=== PATIENT | female | born 1950 | race Caucasian/White ===

== ENCOUNTER 2020-07-01 06:18 | Observation (INO) | payer MEDICARE, OTHER ==
[~2020-07-01] VITALS: Ht 157.5 cm; Wt 69.9 kg
--- NOTE | 2020-07-01 06:39 | Emergency Department Note ---
History of Present Illnes History of Present Illness History of Present Illness This is a 70 year old female with sudden onset of R thigh pain anterior since this AM. Denies CP or SOB . 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 Location: Right Leg Pain Radiation: Reports extremity Severity: moderate Onset quality: gradual Duration (how long): hour(s) Timing of current episode: constant Progression: worsening Chronicity: new Context: Denies recent illness, Denies recent surgery, Denies recent immobilization, Denies recent travel, Denies trauma/injury, Denies new medications, Denies hx of DVT/PE, Denies non-compliance w/ medications, Denies other Relieving factors: immobilization, rest Exacerbating factors: movement Associated symptoms: Denies denies other symptoms, Denies confusion, Denies chest pain, Denies cough, Denies diaphoresis, Denies fever/chills, Denies headaches, Denies loss of appetite, Denies malaise, Denies nausea/vomiting, Denies rash, Denies seizure, Denies shortness of breath, Denies syncope, Denies weakness, Denies other Treatments prior to arrival: none Past Medical/Family History Physician Review I have reviewed the patient's past medical and family history. Any updates have been documented here. Past Medical History Recent Fever: No Clinical Suspicion of Infectio: No New/Unexplained Change in Ment: No Past Medical History: Hypertension Other Medical History: RA Other Surgery: spinal sx hysterectomy Social History Smoking Cessation: Current every day smoker Counseling Performed: Yes Alcohol Use: None Any Illegal Drug Use: No Review of Systems Review of Systems Constitutional: Reports no symptoms EENTM: Reports no symptoms Cardiovascular: Reports no symptoms Respiratory: Reports no symptoms Gastrointestinal: Reports no symptoms Genitourinary: Reports no symptoms Musculoskeletal: Reports muscle pain Integumentary: Reports no symptoms Neurological: Reports no symptoms Psychological: Reports no symptoms Endocrine: Reports no symptoms Hematological/Lymphatic: Reports no symptoms Physical Exam Related Data Allergies: Coded Allergies: Penicillins (Verified Allergy, Severe, ANAPHYLAXIS, 07/01/20) codeine (Verified Allergy, Severe, ANAPHYLAXIS, 07/01/20) erythromycin base (Verified Allergy, Severe, ANAPHYLAXIS, 07/01/20) iodine (Verified Allergy, Severe, ANAPHYLAXIS, 07/01/20) morphine (Verified Allergy, Severe, "BREATHING PROBLEMS", 07/01/20) nitrofurantoin (Verified Allergy, Severe, ANAPHYLAXIS, 07/01/20) shellfish derived (Verified Allergy, Severe, ANAPHYLAXIS, 07/01/20) NSAIDS (Non-Steroidal Anti-Inflamma (Verified Allergy, Unknown, "TORE STOMACH UP", 07/01/20) Sulfa (Sulfonamide Antibiotics) (Verified Allergy, Unknown, 07/01/20) acetaminophen (Verified Allergy, Unknown, MIGRAINE, 07/01/20) adhesive (Verified Allergy, Unknown, SPOT ITCHING/BREAKOUTS, 07/01/20) amitriptyline (Verified Allergy, Unknown, DRASTICALLY CHANGED HER PERSONALITY, 07/01/20) carisoprodol (Verified Allergy, Unknown, TREMORS, 07/01/20) cyclobenzaprine (Verified Allergy, Unknown, TREMORS, 07/01/20) diazepam (Verified Allergy, Unknown, 07/01/20) diclofenac (Verified Allergy, Unknown, RASH, 07/01/20) etodolac (Verified Allergy, Unknown, 07/01/20) hydrocodone (Verified Allergy, Unknown, MIGRAINE, 07/01/20) latex (Verified Allergy, Unknown, RASH, 07/01/20) levofloxacin (Verified Allergy, Unknown, TENDONITIS, 07/01/20) nortriptyline (Verified Allergy, Unknown, CHEST PAIN, 07/01/20) tizanidine (Verified Allergy, Unknown, 07/01/20) Uncoded Allergies: ASA BUFF (Allergy, Unknown, 07/01/20) MAG CARB-AL GYLC (Allergy, Unknown, 07/01/20) SUN (Allergy, Unknown, RASH, 07/01/20) VOLTAREN GEL (Allergy, Unknown, RASH, 07/01/20) Vital signs reviewed: Yes Physical Exam CONSTITUTIONAL Constitutional: Present well-developed, Present well-nourished HENT HENT: Present normocephalic, Present atraumatic, Present oropharynx clear/moist, Present nose normal HENT L/R: Present left ext ear normal, Present right ext ear normal EYES Eyes: Reports PERRL, Reports conjunctivae normal NECK Neck: Present ROM normal PULMONARY Pulmonary: Present effort normal, Present breath sounds normal CARDIOVASCULAR Cardiovascular: Present regular rhythm, Present heart sounds normal, Present capillary refill normal, Present normal rate GASTROINTESTINAL Abdominal: Present soft, Present nontender, Present bowel sounds normal GENITOURINARY Genitourinary: Present exam deferred SKIN Skin: Present warm, Present dry MUSCULOSKELETAL Musculoskeletal: Present edema (RLe), Present tenderness (RLE) NEUROLOGICAL Neurological: Present alert, Present oriented x 3, Present no gross motor or sensory deficits PSYCHOLOGICAL Psychological: Present mood/affect normal, Present judgement normal Results Laboratory Lab results reviewed: Yes Laboratory comments CMP : potassium at 2.5 CK 477 CKMB 14.7 Cristiano 277 Imaging Imaging results reviewed: Yes Impressions [place] [address] Patient Name: DIXIE DUNN MR #: [id number] : 1950 Age/Sex: 70/F Req #: [id number] [facility] Physician: ESHA JUAREZ MD Ordered by: PAULO DUNN DO Report #: [id number] Location: [facility] Room/Bed: [place] [address] Procedure: [id number] HOPD/US LOW EXT VEINS LIMITED UNI Exam Date: 07/01/20 Exam Time: 0815 REPORT STATUS: Signed EXAM: Right Lower Extremity Venous Duplex Ultrasound INDICATION: right leg pain COMPARISON: None TECHNIQUE: Kumari scale, color Doppler and spectral waveform analysis of the right lower extremity deep venous system was performed. FINDINGS: Common Femoral: Fully compressible with normal spontaneous waveforms. Proximal Greater Saphenous: Fully compressible. Femoral: Fully compressible with normal spontaneous waveforms. Normal response to augmentation. Proximal Deep Femoral: Normal spontaneous waveforms. Popliteal: Fully compressible with normal spontaneous waveforms. IMPRESSION: No evidence of deep venous thrombosis in the right lower extremity. Signed by: Romaine Umaña MD on 07/01/2020 8:56 AM Dictated By: ROMAINE UMAÑA MD 5 Transcribed By: RIKA on 07/01/20855 COPY TO: PAULO DUNN DO~ [place] [address] Patient Name: DIXIE DUNN MR #: [id number] : 1950 Age/Sex: 70/F Req #: [id number] Adm Physician: ESHA JUAREZ MD Ordered by: PAULO DUNN DO Report #: [id number] Location: [facility] Room/Bed: [place] [address] Procedure: [id number] HOPD/FEMUR 2 VIEW RT - HOPD Exam Date: 07/01/20 Exam Time: 0837 REPORT STATUS: Signed FEMUR 2 VIEW RT - HOPD - Multiple views HISTORY: ^Leg pain COMPARISON: None available. FINDINGS: Bones: No acute displaced fracture. Osseous alignment is within normal limits. Joints: Status post knee arthroplasty without acute findings. Soft tissues: The soft tissues appear unremarkable. IMPRESSION: No acute radiographic abnormality. Signed by: Romaine Umaña MD on 07/01/2020 9:07 AM Dictated By: ROMAINE UMAÑA MD 6 Transcribed By: RIKA on 07/01/20906 COPY TO: PAULO DUNN DO~ Assessment & Plan Medical Decision Making MDM Diff Dx : RA flare up, DVT, muscle sprain strain , fx , rhabdomyolysis Assessment & Plan Final Impression: (1) Rhabdomyolysis (2) Hypertension (3) Hypokalemia Depart Disposition: ADMITTED PAULO DUNN DO Jul 01, 2020 06:39
--- OUTSIDE RECORDS SUMMARY | 2020-07-01 08:11 | XMS REPORT | Continuity of Care Document ---
Author Author [facility] t Organization [facility] [place], [place] Address [address] [place] [address] Phone Unavailable Care Team Providers Care Applications Chemist Name Role Phone Huber BARRIOS, S Jacques PCP Ruddy BOWDEN, Rod Attphys Juvenal FUNES, Yves Attphys Unavailable Olegario BARRIOS, Demarcus Mayo Attphys Marilu BARRIOS, Alena Madrigal Attphys Ton BARRIOS, Melvin Cowan Attphys Alysia BARRIOS, Luis Enrique Baker Attphys [phone] ROHAN MICHEL Admphys Unavailable Payers Payer Name Policy Type Policy Number Effective Date Expiration Date Narcisa grimes [facility] [id number] [id number] 2018 00:00:00 Jay [id number] [id number] 2011 00:00:00 Jay Sarmiento Problems Condition Name Condition Details Condition Category Status Onset Date Resolution Date Last Treatment Date Treating Clinician Comments Source Cellulitis Cellulitis Disease Active 2019-09-25 00:00:00 Jay Sarmiento Septic olecranon bursitis of right elbow Septic olecra non bursitis of right elbow Disease Active 2019-09-25 00:00:00 Overview: Added automatically from request for surgery [id number] Jay Sarmiento Atrial fibrillation with rapid ventricular response At rial fibrillation with rapid ventricular response Disease Active 2018-07-17 00:00:00 Jay Sarmiento Allergies, Adverse Reactions, Alerts Allergy Name Allergy Type Status Severity Reaction(s) Onset Date Inacti ve Date Treating Clinician Comments Source Adhesive Tape-Silicones Propensity to adverse reactions to drug Activ e Rash 2018-06-22 00:00:00 Itching Jay bernstein Amitriptyline-Chlordiazepoxide Propensity to adverse reactions to d rug Active 2018-06-22 00:00:00 Jay Sarmiento Carisoprodol Propensity to adverse reactions to drug Active 2018-06-22 00:00:00 Jay kyle Codeine Propensity to adverse reactions to drug Active GI Intolerance 2018-06-22 00:00:00 Nausea and vomiting Jay Sarmiento Diclofenac Propensity to adverse reactions to drug Active Rash 2018-06-22 00:00:00 Jay kyle Erythromycin Propensity to adverse reactions to drug Active Anaphylaxis 2018-06-22 00:00:00 Jay bernstein Kxymqkes-Dtswnbbzw-Hg-Georgi-Men Propensity to adverse reactions to dr ug Active 2018-06-22 00:00:00 Jay Sarmiento Hydrocodone-Acetaminophen Propensity to adverse reactions to drug Act yamila 2018-06-22 00:00:00 Jay bernstein Iodine Propensity to adverse reactions to drug Active Anaphylaxis 2018-06-22 00:00:00 Jay kyle Latex Propensity to adverse reactions to drug Active Rash 2018-06-22 00:00:00 Jay Sarmiento Levofloxacin Propensity to adverse reactions to drug Active Other (See Comments) 2018-06-22 00:00:00 tendonitis Jay Sarmiento Nitrofurantoin Monohyd/M-Cryst Propensity to adverse reactions to d rug Active Anaphylaxis 2018-06-22 00:00:00 Jay Sarmiento Morphine Propensity to adverse reactions to drug Active 2018-06-22 00:00:00 Jay Sarmiento Nortriptyline Propensity to adverse reactions to drug Active 2018-06-22 00:00:00 Jay kyle Nsaids (Non-Steroidal Anti-Inflammatory Drug) Propensi ty to adverse reactions to drug Active Other (See Comments) 2018-06-22 00:00:00 GI bleeding Jay Sarmiento Other Propensity to adverse reactions Active 00:00:00 Sun- rash Jay Sarmiento Penicillins Propensity to adverse reactions to drug Active Anaphylaxis 2018-06-22 00:00:00 Jay bernstein Shellfish Derived Propensity to adverse reactions to drug Active Anaphylaxis 2018-06-22 00:00:00 Thompson Aditi odchago Sulfa (Sulfonamide Antibiotics) Propensity to adverse reactions to drug Active 2018-06-22 00:00:00 [place] Tizanidine Propensity to adverse reactions to drug Active 2018-06-22 00:00:00 Jay Majoris t Diazepam Propensity to adverse reactions to drug Active 2018-06-22 00:00:00 Jay Sarmiento Social History Social Habit Start Date Stop Date Quantity Comments Source History of tobacco use Cigarette Smoker Jay Sarmiento History SDOH Alcohol Std Drinks Jay Sarmiento History SDOH Alcohol Binge Jay Sarmiento Sex Assigned At [place] Sarmiento Cigarettes smoked current (pack per day) - Reported 00:00:00 2019-09-29 00:00:00 Jay Sarmiento Tobacco use and exposure 2019-09-29 00:00:00 2019-09-29 00:00:00 Abdiel r used Jay Sarmiento Alcohol intake 2019-09-29 00:00:00 2019-09-29 00:00:00 Jay Sarmiento History SDOH Alcohol Frequency 2018-07-17 00:00:00 2018-07-17 00:00:0 0 1 Jay Sarmiento Smoking Status Start Date Stop Date Source Current every day smoker 2019-09-29 00:00:00 [place] Sarmiento Medications Ordered Medication Name Filled Medication Name Start Date Stop Da te Current Medication? Ordering Clinician Indication Dosage Frequency Signature (SIG) Comments Components Source leflunomide (ARAVA) 20 MG tablet 2019-10-01 12:56:09 Yes 20mg QD Take 20 mg by mouth daily. Jay Sarmiento furosemide (LASIX) 20 mg tablet 2019-10-01 12:56:09 Yes 40mg Q.5D Take 40 mg by mouth 2 (two) times a day. [place] Sarmiento pantoprazole (PROTONIX) 40 MG EC tablet 2019-10-01 12:56:09 Yes 40mg QD Take 40 mg by mouth daily. Jay bernstein potassium chloride (K-DUR) 20 MEQ CR tablet 2019-10-01 12:56:09 Yes 20meq Q.5D Take 20 mEq by mouth 2 (two) times a day. Jay Sarmiento predniSONE (DELTASONE) 5 mg tablet 2019-10-01 12:56:09 Yes 5mg QD Take 5 mg by mouth daily. Jay Sarmiento oxyCODone-acetaminophen (PERCOCET) 10-325 mg per tablet 2019-10-01 12:56:09 Yes 1{tbl} Q.2D Take 1 tablet b y mouth 5 (five) times a day. Takes at 0800,1200,1600,2000,0000 Jay singleton clonIDINE (CATAPRES) 0.1 MG tablet 2019-10-01 12:56:09 Y es .1mg Q.[id number] Take 0.1 mg by mouth 3 (three) times a day. Jay Sarmiento pregabalin (LYRICA) 200 MG capsule 2019-10-01 12:56:09 Y es 200mg Q.[id number] Take 200 mg by mouth 3 (three) times a day. Jay Sarmiento ketoconazole (NIZORAL) 2 % shampoo 2019-10-01 12:56:09 Yes QD Apply topically daily. Jay Sarmiento cyclobenzaprine (FLEXERIL) 10 mg tablet 2019-10-01 12:56:09 Yes 10mg Q.8475472991634044360O Take 10 mg by mouth 3 (three) times a da y as needed for muscle spasms (pt states she takes 3x/day everyday). Jay Sarmiento amLODIPine (NORVASC) 2.5 mg tablet 2019-10-01 12:56:09 Yes 2.5mg QD Take 2.5 mg by mouth daily. Jay Sarmiento bisoprolol (ZEBETA) 5 MG tablet 2019-10-01 12:56:09 Yes 5mg Q.5D Take 5 mg by mouth 2 (two) times a day. Jay Sarmiento apixaban (ELIQUIS) 2.5 mg tablet 2019-10-01 12:56:09 Yes 2.5mg Q.5D Take 2.5 mg by mouth 2 (two) times a day. [place] Sarmiento mupirocin (BACTROBAN) 2 % ointment 2019-10-01 12:56:09 Y es 1{application} Q.5D Apply 1 application topically 2 (two) times a day. Jay Sarmiento ondansetron ODT (ZOFRAN-ODT) 4 MG disintegrating tablet 2019-10-01 12:56:09 Yes 4mg Q8H Take 4 mg by mo uth every 8 (eight) hours as needed for nausea or vomiting. Jay Sarmiento clindamycin (CLEOCIN) 300 MG capsule 2019-09-30 00:00: 00 2019-10-10 23:59:00 No 600mg Q.[id number] Take 2 capsules (600 mg total) by mouth 3 (three) times a day for 10 days. Jay Sarmiento ondansetron (ZOFRAN) 4 MG tablet 2019-09-25 13:59:32 2019-09 00:00:00 No 4mg Q8H Take 4 mg by mouth e very 8 (eight) hours as needed for nausea or vomiting. Jay Sarmiento Vital Signs Vital Name Observation Time Observation Value Comments Source Systolic blood pressure 2019-10-01 10:50:12 155 mm[Hg] Jay Sarmiento Diastolic blood pressure 2019-10-01 10:50:12 74 mm[Hg] Jay Sarmiento Heart rate 2019-10-01 10:50:12 60 /min Jay Sarmiento Body temperature 2019-10-01 10:50:12 36.72 Mell Aruna Sarmiento Respiratory rate 2019-10-01 10:50:12 16 /min Aruna Sarmiento Oxygen saturation in Arterial blood by Pulse oximetry 10-01 10:50:12 98 /min Jay Sarmiento Body height 2019-09-25 11:41:00 157.5 cm Jay Sarmiento Body weight 2019-09-25 11:41:00 68.04 kg Jay Sarmiento BMI 2019-09-25 11:41:00 27.44 kg/m2 Jay Sarmiento Procedures Procedure Date / Time Performed Performing Clinician Sour e BASIC METABOLIC PANEL 2019-09-30 04:42:00 Gael Melvin HC COMPLETE BLD COUNT W/AUTO DIFF 2019-09-30 04:42:00 Rohan Michel ESTIMATED GFR 2019-09-30 04:42:00 Gael Melvin ANAEROBIC CULTURE 2019-09-29 10:34:00 Gael Melvin GRAM STAIN 2019-09-29 10:34:00 Gael Melvin JOINT FLUID CULTURE 2019-09-29 10:34:00 Gael Melvin AFB STAIN 2019-09-29 10:34:00 Gael Melvin AL AN ELECTIVE SUPRAGLOTTIC AIRWAY 2019-09-29 10:33:48 Todd Zoey Galarzabroderick Thompson [place] EXCISION, OF OLECRANON BURSA 2019-09-29 10:12:00 Gael Melvin FUNGUS CULTURE 2019-09-29 09:34:00 Gael Melvin [place] AFB CULTURE 2019-09-29 09:34:00 Gael Melvin [place] ECG 12-LEAD 2019-09-29 07:29:16 Rohan Michel BUN LEVEL 2019-09-28 05:28:00 ConRosalind chang Meth odist CREATININE LEVEL 2019-09-28 05:28:00 Rosalind Lazcano Met hodist ESTIMATED GFR 2019-09-28 05:28:00 Rosalind Lazcano Meth odist POTASSIUM LEVEL 2019-09-27 14:44:00 MichelRohan vegas VANCOMYCIN LEVEL, TROUGH 2019-09-27 11:15:00 Rosalind Lazcano BUN LEVEL 2019-09-27 04:26:00 Rosalind Lazcano Meth odist CREATININE LEVEL 2019-09-27 04:26:00 Rosalind Lazcano Met hodist ESTIMATED GFR 2019-09-27 04:26:00 Rosalind Lazcano Meth odist POTASSIUM LEVEL 2019-09-26 20:56:[address] UPPER EXTREMITY WO RIGHT 2019-09-26 20:20:00 Liz Daigle BASIC METABOLIC PANEL 2019-09-26 05:55:00 Rohan Michel HC COMPLETE BLD COUNT W/AUTO DIFF 2019-09-26 05:55:00 Rohan Michel ESTIMATED GFR 2019-09-26 05:55:00 Rosalind Lazcano odchago XR ELBOW 3+ VW RIGHT 2019-09-25 12:50:00 Rosalind Lazcano BLOOD CULTURE, AEROBIC & ANAEROBIC 2019-09-25 12:14:00 Rosalind Lazcano BLOOD CULTURE, AEROBIC & ANAEROBIC 2019-09-25 11:55:00 Rosalind Lazcano HC COMPLETE BLD COUNT W/AUTO DIFF 2019-09-25 11:55:00 Marina Lazcano COMPREHENSIVE METABOLIC PANEL 2019-09-25 11:55:00 Rosalind Lazcano ESTIMATED GFR 2019-09-25 11:55:00 Rosalind Lazcano odist Plan of Care Planned Activity Planned Date Details Comments Source Future Scheduled Test 2020-03-06 00:00:00 INFLUENZA VACCINE [code = INFLUENZA VACCINE] Jay Sarmiento Future Scheduled Test 2017 00:00:00 65+ PNEUMOCOCCAL V ACCINE (1 of 1 - PPSV23) [code = 65+ PNEUMOCOCCAL VACCINE (1 of 1 - PPSV23)] Jay Sarmiento Future Scheduled Test 2002 00:00:00 BREAST CANCER SCRE ENING [code = BREAST CANCER SCREENING] Jay Sarmiento Future Scheduled Test 2002 00:00:00 COLONOSCOPY SCREEN ING [code = COLONOSCOPY SCREENING] Jay Sarmiento Future Scheduled Test 2002 00:00:00 SHINGLES VACCINES (#1) [code = SHINGLES VACCINES (#1)] Jay Sarmiento Encounters Start Date/Time End Date/Time En[facility] Source 2020-02-27 19:22:45 2020-02-27 22:13:00 Emergency [facility] ([facility]) [id number] 2019-09-25 00:00:00 2019-10-01 00:00:00 Inpatient MICHEL, IMRA N [facility] [id number] Jay Sarmiento Results Test Description Test Time Test Comments Results Result Comments Source AFB culture 2019-11-11 00:13:32 Test Item AFB culture isolate (test code = 543-9) No growth after 6 we eks of incubation. Specimen InformationSpecimen Source: Specimen Site: Elbow: Right Olecranon Bural fluid Jay Ramsayngus [id number] 00:15:13* Test Item Value Reference Range Interpretation Comments Fungus culture isolate (test code = 1441) No growth af ter 4 weeks of incubation. Specimen Information Specimen Source: Specimen Site: Elbow: Right Olecranon Bural fluid [place] MethodistAnaerobic [id number] 08:33:36* Test Item Value Reference Range Interpretation Comments Anaerobic culture isolate (test code = 552) No anaerobic organis ms isolated. Specimen InformationSpecimen Source: [facility] Site: Elbow: Right Olecranon Bural fluid [place] MethodistAFB [id number] 19:09:33* Test Item Value Reference Range Interpretation Comments AFB stain (test code = 676-7) No acid fast bacilli (AFB) seen. Specimen InformationSpecimen Source: Specimen Site: Elbow: Right Olecranon Bural fluid [place] MoriahistFungus [id number] 19:09:33* Test Item Value Reference Range Interpretation Comments Fungus smear (test code = 1443) No fungi observed. Specimen InformationSpecimen Source: Specimen Site: Elbow: Right Olecranon Bural fluid [place] MethodistGram [id number] 19:09:33Gram stain isolateModerate WBC'sNo organisms seen Comment: Specimen InformationSpecimen Source: Specimen Site: Elbow: Right Olecranon Bural fluid [facility] Yazdanism Blood culture, aerobic & [id number] 19:03:03* Test Item Value Reference Range Interpretation Comments Blood culture isolate (test code = 600-7) No growth after 5 days of incubation. Specimen InformationSpecimen Source: BloodSpecimen Site: Antecubital, left [facility] metabolic [id number] 06:05:42* Test Item Value Reference Range Interpretation Comments Sodium (test code = 2951-2) 142 135- 148 mEq/L Potassium (test code = 2823-3) 3.3 3.5- 5.0 mEq/L L Chloride (test code = 2075-0) 107 98- 112 mEq/L CO2 (test code = 2028-9) 23 24- 31 mEq/L L Anion gap (test code = 71188-9) 12@ANIO 7- 15 mEq/L BUN (test code = 3094-0) 7 mg/dL 8-23 L Creatinine (test code = 2160-0) 0.60 mg/dL 0.5-0.9 Glucose (test code = 2345-7) 125 mg/dL 65-99 H Calcium (test code = 38698-2) 9.2 mg/dL 8.8-10.2 Lab Interpretation (test code = 73018-7) Abnormal Thompson MethodistEstimated [id number] 06:05:42* Test Item Value Reference Range Interpretation Comments Estimated GFR (test code = 5488) >=90 mL/min/1.73 m2 Catergory Units InterpretationG1 >=90 Normal or highG2 60-89 Mildly bvukhyfqhS6o 45-59 Mildly to moderately yzlurpjryV9w 30-44 Moderately to severely decreasedG4 15-29 Severely decreasedG5 <15 Kidney failureThe eGFR was calculated using the Chronic Kidney Disease Epidemiology Collaboration (CKD-EPI) equation. Interpretation is based on recommendations of the National Kidney Foundation-Kidney Disease Outcomes Quality Initiative (NKF-KDOQI) published in 2014. [place] MethodistCBC with platelet and lpcqbhvxvnnb6587-95-44 05:51:32* Test Item Value Reference Range Interpretation Comments WBC (test code = 81368-8) 8.26 4.50- 11.00 k/uL RBC (test code = 87423-9) 3.53 m/uL 4.2-5.5 L HGB (test code = 718-7) 10.7 g/dL 12-16 L HCT (test code = 4544-3) 33.2 % 37-47 L MCV (test code = 787-2) 94.1 fL 82-100 MCH (test code = 785-6) 30.3 pg 27-34 MCHC (test code = 786-4) 32.2 g/dL 31-37 RDW - SD (test code = 41815-4) 45.3 fL 37-55 MPV (test code = 50398-7) 12.4 fL 8.8-13.2 Platelet count (test code = 44219-8) 152 150- 400 k/uL Nucleated RBC (test code = 23289-5) 0.00 /100 WBC Neutrophils (test code = 33084-5) 72.7 % 39-69 H Lymphocytes (test code = 10897-4) 17.1 % 25-45 L Monocytes (test code = 23809-8) 9.2 % 0-10 Eosinophils (test code = 10681-7) 0.2 % 0-5 Basophils (test code = 69785-1) 0.4 % 0-1 Lab Interpretation (test code = 06376-2) Abnormal Thompson MethodistECG 12 [id number] 11:52:50* Test Item Value Reference Range Interpretation Comments Ventricular rate (test code = 253) 74 Atrial rate (test code = 255) 74 AL interval (test code = 266) 136 QRSD interval (test code = 260) 74 QT interval (test code = 264) 386 QTC interval (test code = 265) 428 P axis 1 (test code = 267) 82 QRS axis 1 (test code = 268) 48 T wave axis (test code = 270) 69 EKG impression (test code = 273) Normal sinus rhythm-C annot rule out Anterior infarct , age undetermined-Abnormal ECG-No previous ECGs available- Jay [id number] 10:33:48MoZoey quinonez 09/29/2019 10:34 AMAirwayDate/Time: 09/29/2019 10:20 AMPerformed by: Zoey Brooks StraubAuthorized by: Samuel Hatfield MD Location: ORUrgency: ElectiveDifficult Airway: No Anesthesiologist: Samuel Hatfield, NAJMAesident/AGRICULTURE SCIENCE TEACHER/AA: Zoey Brooks StraubPerformed by: resid ent/AGRICULTURE SCIENCE TEACHER/AAPreoxygenated with 100% O2: Yes C-spine Precautions Maintained Throu ghout: Yes Mask Ventilation: Easy maskFinal Airway Type: Supraglottic airwayF inal LMA: UniqueLMA Size: 4Number of Attempts at Approach: 1Houstejal Sarmiento Creatinine [id number] 06:03:56* Test Item Value Reference Range Interpretation Comments Creatinine (test code = 2160-0) 0.80 mg/dL 0.5-0.9 Jay MethodistBUN [id number] 06:03:56* Test Item Value Reference Range Interpretation Comments BUN (test code = 3094-0) 11 mg/dL 8-23 Jay SarmientoPotassium [id number] 15:26:31* Test Item Value Reference Range Interpretation Comments Potassium (test code = 2823-3) 3.9 3.5- 5.0 mEq/L Jay SarmientoVancomycin level, [id number] 11:56:46* Test Item Value Reference Range Interpretation Comments Vancomycin, trough (test code = 91140-8) 10.6 ug/mL 10-20 Therapeutic Ranges: Peak 30.0 - 40.0 ug/mL Trough 10.0 - 20.0 ug/mL Jay aSrmientoCT Upper Extremity Wo [id number] 20:41:06Hm Interface, Radiology Results Incoming - 09/26/2019 8:44 PM CSTEXAMINATION: CT UPPER EXTREMITY WO RIGHTINDICATION: Elbow pain.COMPARISON: Elbow radiographs dated 09/25/2019TECHNIQUE: Helical axial CT images of the elbow was acquired without intravenous contrast. Sagittal coronal planar reformats were reviewed. Iterative reconstruction and/or automated exposure control was used for dose reduction technique.IMPRESSION:1.Thickening of the skin as well as edema of the subcuta neous fat overlying the olecranon process consistent with cellulitis. There is e xtensive confluent subcutaneous edema at the site and in the absence of contrast an underlying abscess or olecranon bursitis is difficult to exclude. Recommend a contrast-enhanced examination or MRI.2.No evidence of osteomyelitis. No elbow joint effusion to suggest septic arthritis.3.Subcutaneous edema involving the im aged portion of the distal arm and proximal forearm without evidence of a discre te intramuscular or subcutaneous fluid collection consistent with cellulitis. [place] Moriahpresbyterian kaseman hospitalXR Elbow 3+ Vw [id number] 13:15:45Hm Interface, Radiology Results Incoming - 09/25/2019 1:18 PM CSTProcedure:XR ELBOW 3 VW RIGHTREFERRING PHYSICIAN: ROSALIND CONONIEHISTORY: rule out foreign avelino dyCOMPARISON:NoneFINDINGS:No evidence of fracture or dislocation is seen. The yovani int spaces are maintained. No osteolytic or osteoblastic lesion is identify.Subc utaneous edema along the medial posterior aspect of the elbow is noted. Regional soft tissue is otherwise unremarkable. No radiopaque foreign body is seen.XR EL BOW 3 VW RIGHT acquired.IMPRESSION:No radiographic evidence of radiopaque fore ign-body, acute fracture or dislocation of the right elbow.[id number] Jay MethodistComprehensive metabolic [id number] 12:53:24* Test Item Value Reference Range Interpretation Comments Sodium (test code = 2951-2) 141 135- 148 mEq/L Potassium (test code = 2823-3) 3.1 3.5- 5.0 mEq/L L Chloride (test code = 2075-0) 99 98- 112 mEq/L CO2 (test code = 2027-9) 28 24- 31 mEq/L Anion gap (test code = 80889-7) 14@ANIO 7- 15 mEq/L BUN (test code = 3094-0) 12 mg/dL 8-23 Creatinine (test code = 2160-0) 0.80 mg/dL 0.5-0.9 Glucose (test code = 2345-7) 110 mg/dL 65-99 H Calcium (test code = 57975-4) 10.2 mg/dL 8.8-10.2 Protein (test code = 2885-2) 7.4 g/dL 6.3-8.3 Zjmggtk6933.6-7.0 g/dL1 zyvq2238.4-7.6 g/dL7 months-7balc526.1-7.3 g/dL1-2 nmypk480.6-7.5 g/dL>3 ynzhn032.0-8.0 g/bV70-7806991.3-8.3 g/dL Albumin (test code = 1751-7) 4.0 g/dL 3.5-5 A/G ratio (test code = 1759-0) 1.2 0.7-3.8 Alkaline phosphatase (test code = 6768-6) 107 U/L 35-104 H AST (test code = 1920-8) 16 U/L 10-35 ALT (test code = 1742-6) 12 U/L 5-50 Total bilirubin (test code = 1974-) 0.6 mg/dL 0-1.2 Lab Interpretation (test code = 05028-5) Abnormal Jay Yazdanism
--- OUTSIDE RECORDS SUMMARY | 2020-07-01 08:11 | XMS REPORT | Clinical Summary ---
Author Author [facility] Organization [facility] Address Unknown Phone Unavailable Care Team Providers Care Business Performance Analyst Name Role Phone Jacques Ngo MD PCP Allergies Comments Active Allergy Reactions Severity Noted Date Itching Adhesive Tape-Silicones Rash Low 2017 Amitriptyline-Chlordiazep 06/22/2018 oxide Carisoprodol 06/22/2018 Nausea and vomiting Codeine GI 06/22/2018 Intolerance Diclofenac Rash Low 06/22/2018 Erythromycin Anaphylaxis High 06/22/2018 Cagsrchg-Wdlknkxyo-Ja-Georgi 06/22/2018 -Men Hydrocodone-Acetaminophen 06/22/2018 Iodine Anaphylaxis High 06/22/2018 Latex Rash Low 06/22/2018 tendonitis Levofloxacin Other (See 06/22/2018 Comments) Nitrofurantoin Anaphylaxis High 06/22/2018 Monohyd/M-Cryst Morphine 06/22/2018 Nortriptyline 06/22/2018 GI bleeding Nsaids (Non-Steroidal Other (See 06/22/2018 Anti-Inflammatory Drug) Comments) Sun-rash Other 06/22/2018 Penicillins Anaphylaxis High 06/22/2018 Shellfish Derived Anaphylaxis High 06/22/2018 Other Sulfa (Sulfonamide 06/22/2018 Antibiotics) Tizanidine 06/22/2018 Diazepam 06/22/2018 Medications End Date Status Medication Sig Dispensed Refills Start Date Active leflunomide (ARAVA) 20 MG Take 20 mg by 0 tablet mouth daily. Active furosemide (LASIX) 20 mg Take 40 mg by 0 tablet mouth 2 (two) times a day. Active pantoprazole (PROTONIX) Take 40 mg by 0 40 MG EC tablet mouth daily. Active potassium chloride Take 20 mEq 0 (K-DUR) 20 MEQ CR tablet by mouth 2 (two) times a day. Active predniSONE (DELTASONE) 5 Take 5 mg by 0 mg tablet mouth daily. Active oxyCODone-acetaminophen Take 1 tablet 0 (PERCOCET) 10-325 mg per by mouth 5 tablet (five) times a day. Takes at 0800,1200,160 0,2000,0000 Active clonIDINE (CATAPRES) 0.1 Take 0.1 mg 0 MG tablet by mouth 3 (three) times a day. Active pregabalin (LYRICA) 200 Take 200 mg 0 MG capsule by mouth 3 (three) times a day. Active ketoconazole (NIZORAL) 2 Apply 0 % shampoo topically daily. Active cyclobenzaprine Take 10 mg by 0 (FLEXERIL) 10 mg tablet mouth 3 (three) times a day as needed for muscle spasms (pt states she takes 3x/day everyday). Active amLODIPine (NORVASC) 2.5 Take 2.5 mg 0 mg tablet by mouth daily. Active bisoprolol (ZEBETA) 5 MG Take 5 mg by 0 tablet mouth 2 (two) times a day. Active apixaban (ELIQUIS) 2.5 mg Take 2.5 mg 0 tablet by mouth 2 (two) times a day. Active mupirocin (BACTROBAN) 2 % Apply 1 0 ointment application topically 2 (two) times a day. Active ondansetron ODT Take 4 mg by 0 (ZOFRAN-ODT) 4 MG mouth every 8 disintegrating tablet (eight) hours as needed for nausea or vomiting. 09/25/2019 Discontinued ondansetron (ZOFRAN) 4 MG Take 4 mg by 0 tablet mouth every 8 (eight) hours as needed for nausea or vomiting. 10/10/2019 clindamycin (CLEOCIN) 300 Take 2 60 capsule 0 MG capsule capsules (600 0 mg total) by mouth 3 (three) times a day for 10 days. Active Problems Problem Noted Date Cellulitis 09/25/2019 Septic olecranon bursitis of right elbow 09/25/2019 Overview: Added automatically from request for steffanie randall [id number] Atrial fibrillation with rapid ventricular response 07/17/2018 Encounters Care Team Description Date Type Specialty Yves Sanford MA 10/21/2019 Telephone Orthopedic Surgery 10/21/2019 Gael Hanks Jr., MD 10/02/2019 Telephone Orthopedic Surgery Samuel Hatfield MD 09/29/2019 Anesthesia General Surgery Event Gael Melvin Jr., MD EXCISION, OF OLECRANON BURSA 09/29/2019 Surgery General Surgery Rohan Michel MD Islam, Nadim Bin, MD Septic olecranon bursitis of right elbow (Primary Dx); Cellulitis, unspecified cellulitis site 09/25/2019 [facility] dicine - Encounter 10/01/2019 after 07/01/2019 Immunizations Name Administration Dates Next Due Tdap 03/09/2019 (Deferred: - lemos d one 2 years ago) Surgical History Surgery Date Site/Laterality Comments KNEE ARTHROPLASTY Bilateral HYSTERECTOMY JOINT REPLACEMENT Bilateral knee BACK SURGERY Lumbar,cervical EXCISION, OF OLECRANON 09/29/2019 Elbow/Right Procedu re: EXCISION, OF OLECRANON BURSA; Surgeon: Gael Reid Jr., MD; Location: [facility]; Service: Orthopedics; Laterality: Righ t; Medical History Medical History Date Comments Atrial fibrillation (HCC) Arthritis Hypertension Coronary artery disease Osteoarthritis DJD (degenerative joint disease) Neuropathy Fibromyalgia Social History Date Tobacco Use Types Packs/Day Years Used Current Every Day Smoker Cigarettes 1 Smokeless Tobacco: Never Used Drinks/Week oz/Week Comments Alcohol Use Defer Alcohol Habits Answer Date Recorded How often do you have a drink containing alcohol? Never 07/17/2018 How many drinks containing alcohol do you have on No t asked a typical day when you are drinking? How often do you have six or more drinks on one Not asked occasion? Sex Assigned at Date Recorded Not on file Last Filed Vital Signs Reading Time Taken Comments Vital Sign 155/74 10/01/2019 10:50 AM CIGAR BINDER Blood Pressure 60 10/01/2019 10:50 AM [facility]IGAR BINDER Pulse 36.7 C (98.1 F) 10/01/2019 10:50 AM CIGAR B[facility]ER Temperature 16 10/01/2019 10:50 AM C[facility]AR BINDER Respiratory Rate 98% 10/01/2019 10:50 AM CIGAR BINDER Oxygen Saturation - - Inhaled Oxygen Concentration 68 kg (150 lb) 09/25/2019 11:41 AM CIGAR BINDER Weight 157.5 cm (5' 2") 09/25/2019 11:41 AM CIGAR BINDER Height 27.44 09/25/2019 11:41 AM CIGAR B[facility]ER Body Mass Index Plan of Treatment Health Maintenance Due Date Last Done Comments BREAST CANCER SCREENING 2002 COLONOSCOPY SCREENING 2002 SHINGLES VACCINES (#1) 2002 65+ PNEUMOCOCCAL VACCINE 2017 (1 of 1 - PPSV23) INFLUENZA VACCINE 03/06/2020 Procedures Comments Procedure Name Priority Date/Time Associated Diag nosis ESTIMATED GFR Routine 09/30/2019 4:42 AM CIGAR BINDER HC COMPLETE BLD COUNT Routine 09/30/2019 W/AUTO DIFF 4:42 AM [facility]IGAR B[facility]ER BASIC METABOLIC PANEL Routine 09/30/2019 4:42 AM CIGAR B[facility]ER AFB STAIN Timed 09/29/2019 10:34 AM CIGAR BINDER JOINT FLUID CULTURE Timed 09/29/2019 10:34 AM C[facility]AR [facility]ER GRAM STAIN Timed 09/29/2019 10:34 AM [facility]AR [facility]ER FUNGUS SMEAR Timed 09/29/2019 10:34 AM [facility]AR [facility]ER ANAEROBIC CULTURE Timed 09/29/2019 Septic olecr anon bursitis 10:34 AM CIGAR BINDER of right elbow MT AN ELECTIVE Routine 09/29/2019 SUPRAGLOTTIC AIRWAY 10:33 AM CIGAR B[facility]ER EXCISION, OF OLECRANON 09/29/2019 Septic olecran on bursitis BURSA 10:12 AM CIGAR BINDER of right elbow AFB CULTURE Timed 09/29/2019 Septic olecrano n bursitis 9:34 AM CIGAR BINDER of right elbow FUNGUS CULTURE Timed 09/29/2019 Septic olecrano n bursitis 9:34 AM CIGAR B[facility]ER of right elbow ECG 12-LEAD Routine 09/29/2019 7:29 AM C[facility]AR [facility]ER ESTIMATED GFR Routine 09/28/2019 5:28 AM CIGAR BINDER CREATININE LEVEL Routine 09/28/2019 5:28 AM [facility]AR [facility]ER BUN LEVEL Routine 09/28/2019 5:28 AM [facility]AR [facility]ER POTASSIUM LEVEL Routine 09/27/2019 2:44 PM [facility]ER VANCOMYCIN LEVEL, TROUGH Timed 09/27/2019 11:15 AM CIGAR B[facility]ER ESTIMATED GFR Routine 09/27/2019 4:26 AM CIGAR BINDER CREATININE LEVEL Routine 09/27/2019 4:26 AM C[facility]AR [facility]ER BUN LEVEL Routine 09/27/2019 4:26 AM [facility]ER POTASSIUM LEVEL Routine 09/26/2019 8:[address] UPPER EXTREMITY WO Routine 09/26/2019 RIGHT 8:20 PM [facility]ER ESTIMATED GFR Routine 09/26/2019 5:55 AM CIGAR BINDER HC COMPLETE BLD COUNT Routine 09/26/2019 W/AUTO DIFF 5:55 AM CIGAR B[facility]ER BASIC METABOLIC PANEL Routine 09/26/2019 5:55 AM CIGAR BINDER XR ELBOW 3+ VW RIGHT STAT 09/25/2019 12:50 PM [facility]AR [facility]ER BLOOD CULTURE, AEROBIC & Routine 09/25/2019 ANAEROBIC 12:14 PM [facility]ER ESTIMATED GFR STAT 09/25/2019 11:55 AM CIGAR BINDER COMPREHENSIVE METABOLIC STAT 09/25/2019 PANEL 11:55 AM CIGAR BINDER HC COMPLETE BLD COUNT STAT 09/25/2019 W/AUTO DIFF 11:55 AM CIGAR [facility]ER BLOOD CULTURE, AEROBIC & Routine 09/25/2019 ANAEROBIC 11:55 AM CIGAR BINDER after 07/01/2019 Results * Estimated GFR (09/30/2019 4:42 AM CIGAR BINDER) Only the most recent of 5 results within the time period is included. Estimated GFR >=90 mL/min/1.73 m2 [facility] Comment: [facility] Interpretation G1 >=90 Normal or high G2 60-89 Mildly decreased G3a 45-59 Mildly to moderately decreased G3b 30-44 Moderately to severely decreased G4 15-29 Severely decreased G5 <15 Kidney failure The eGFR was calculated using the Chronic Kidney Disease Epidemiology Collaboration (CKD-EPI) equation. Interpretation is based on recommendations of the National Kidney Foundation-Kidney Disease Outcomes Quality Initiative (NKF-KDOQI) published in 2014. Specimen Plasma specimen Performing Organization Address City/[facility] P kb Number [facility] [place] [address] [place], [place] [address] PATHOLOGY AND GENOMIC MEDICINE [address] * CBC with platelet and differential (09/30/2019 4:42 AM CIGAR BINDER) Only the most recent of 3 results within the time period is included. WBC 8.26 4.50 - 11.00 k/uL [facility] RBC 3.53 (L) 4.20 - 5.50 m/uL [facility] HGB 10.7 (L) 12.0 - 16.0 g/dL [facility] HCT 33.2 (L) 37.0 - 47.0 % [facility] MCV 94.1 82.0 - 100.0 fL [facility] MCH 30.3 27.0 - 34.0 pg [facility] MCHC 32.2 31.0 - 37.0 g/dL [facility] RDW - SD 45.3 37.0 - 55.0 fL [facility] MPV 12.4 8.8 - 13.2 fL [facility] Platelet count 152 150 - 400 k/uL [facility] Nucleated RBC 0.00 /100 WBC [facility] Neutrophils 72.7 (H) 39.0 - 69.0 % [facility] Lymphocytes 17.1 (L) 25.0 - 45.0 % [facility] Monocytes 9.2 0.0 - 10.0 % [facility] Eosinophils 0.2 0.0 - 5.0 % [facility] Basophils 0.4 0.0 - 1.0 % [facility] Specimen Blood Performing Organization Address City/[facility] P kb Number [facility] OF [address] [place] [address] Rod Gilliam [place], [place] [address] PATHOLOGY AND GENOMIC MEDICINE [address] * Basic metabolic panel (09/30/2019 4:42 AM CIGAR BINDER) Only the most recent of 2 results within the time period is included. Sodium 142 135 - 148 mEq/L [facility] Potassium 3.3 (L) 3.5 - 5.0 mEq/L [facility] Chloride 107 98 - 112 mEq/L [facility] CO2 23 (L) 24 - 31 mEq/L [facility] Anion gap 12@ANIO 7 - 15 mEq/L [facility] BUN 7 (L) 8 - 23 mg/dL [facility] Creatinine 0.60 0.50 - 0.90 mg/dL [facility] Glucose 125 (H) 65 - 99 mg/dL [facility] Calcium 9.2 8.8 - 10.2 mg/dL [facility] Specimen Plasma specimen Performing Organization Address City/State/ZIP Code [place] [address] [place] [address] PATHOLOGY AND GENOMIC MEDICINE [facility] [address] * Joint fluid culture (09/29/2019 10:34 AM CIGAR BINDER) Joint fluid Staphylococcus aureus NOEL culture isolate Few BUDDHIST susceptibility to follow HOSPITAL This organism is Methicillin Sensitive. (A) Comment: Specimen Information Specimen Source: Specimen Site: Elbow: Right Olecranon Bural fluid Specimen Antibiotic Method Susceptibility Organism Ampicillin LASHONDA mcg/mL: Resistant Staphylococcus aureus Chloramphenicol LASHONDA mcg/mL: Susceptible Staphylococcus aureus Clindamycin LASHONDA <=0.5 mcg/mL: Susceptible Staphylococcus aureus Doxycycline LASHONDA <=0.5 mcg/mL: Susceptible Staphylococcus aureus Erythromycin LASHONDA <=0.25 mcg/mL: Susceptible Staphylococcus aureus Linezolid LASHONDA 2 mcg/mL: Susceptible Staphylococcus aureus Minocycline LASHONDA <=1 mcg/mL: Susceptible Staphylococcus aureus Oxacillin LASHONDA 0.5 mcg/mL: Susceptible Staphylococcus aureus Penicillin G LASHONDA 1 mcg/mL: Resistant Staphylococcus aureus Rifampin LASHONDA <=0.25 mcg/mL: Susceptible Staphylococcus aureus Tetracycline LASHONDA <=0.5 mcg/mL: Susceptible Staphylococcus aureus Tigecycline LASHONDA <=0.125 mcg/mL: Susceptible Staphylococcus aureus Trimethoprim/Sulfamethoxazole LASHONDA <=0.5/9.5 mcg/mL: Susceptible Staphylococcus aureus Vancomycin LASHONDA 1 mcg/mL: Susceptible Staphylococcus aureus Performing Organization Address [facility] P kb Number [facility] [place] [address] * Fungus smear (09/29/2019 10:34 AM CIGAR BINDER) Fungus smear No fungi observed. NOEL Comment: BUDDHIST Specimen Information HOSPITAL Specimen Source: Specimen Site: Elbow: Right Olecranon Bural fluid Specimen Performing Organization Address [facility] P kb Number [facility] [place] [address] * Gram stain (09/29/2019 10:34 AM CIGAR BINDER) Gram stain Moderate WBC's [facility] isolate No organisms seen BUDDHIST Comment: HOSPITAL Specimen Information Specimen Source: Specimen Site: Elbow: Right Olecranon Bural fluid Specimen Performing Organization Address [facility] P kb Number [facility] [place] [address] * AFB stain (09/29/2019 10:34 AM CIGAR BINDER) AFB stain No acid fast bacilli (AFB) NOEL seen. BUDDHIST Comment: HOSPITAL Specimen Information Specimen Source: Specimen Site: Elbow: Right Olecranon Bural fluid Specimen Performing Organization Address [facility] P kb Number [facility] [place] [address] * Anaerobic culture (09/29/2019 10:34 AM CIGAR BINDER) Anaerobic No anaerobic organisms [facility] culture isolate isolated. BUDDHIST Comment: HOSPITAL Specimen Information Specimen Source: Specimen Site: Elbow: Right Olecranon Bural fluid Specimen Bursal fluid - Elbow Performing Organization Address [facility] P kb Number [facility] [place] [address] [place] [address] HOSPITAL * Airway (09/29/2019 10:33 AM CIGAR BINDER) Narrative Performed At Zoey Brooks 09/29/2019 10:34 AM Airway Date/Time: 09/29/2019 10:20 AM Performed by: Zoey Brooks Authorized by: Samuel Hatfield MD Location: OR Urgency: Elective Difficult Airway: No Anesthesiologist: Samuel Hatfield MD Resident/SILK HANGER/AA: Zoey Brooks aub Performed by: resident/SILK HANGER/AA Preoxygenated with 100% O2: Yes C-spine Precautions Maintained Througho ut: Yes Mask Ventilation: Easy mask Final Airway Type: Supraglottic airwa y Final LMA: Unique LMA Size: 4 Number of Attempts at Approach: 1 * AFB culture (09/29/2019 9:34 AM CIGAR BINDER) AFB culture No growth after 6 weeks of [facility] isolate incubation. BUDDHIST Comment: HOSPITAL Specimen Information Specimen Source: Specimen Site: Elbow: Right Olecranon Bural fluid Specimen Bursal fluid - Elbow Performing Organization Address City/[facility] P kb Number [facility] [place] [address] PATHOLOGY AND GENOMIC MEDICINE [address] * Fungus culture (09/29/2019 9:34 AM CIGAR BINDER) Fungus culture No growth after 4 weeks of [facility]ATA isolate incubation. BUDDHIST Comment: HOSPITAL Specimen Information Specimen Source: Specimen Site: Elbow: Right Olecranon Bural fluid Specimen Bursal fluid - Elbow Performing Organization Address [facility] P kb Number [facility] [place] [address] PATHOLOGY AND GENOMIC MEDICINE [place] BUDDHIST[address] * ECG 12 lead (09/29/2019 7:29 AM CIGAR BINDER) Ventricular 74 [facility] rate Atrial rate 74 [facility] MT interval 136 [facility] QRSD interval 74 [facility] QT interval 386 [facility] QTC interval 428 [facility] P axis 1 82 [facility] QRS axis 1 48 [facility] T wave axis 69 [facility] EKG impression Normal sinus rhythm-Cannot [facility] rule out Anterior infarct , age undetermined-Abnormal ECG-No previous ECGs available- Specimen Narrative Performed At This result has an attachment that is n ot available. Performing Organization Address City/[facility]/ZIP Code P kb Number [facility] MUSE [address] [place] [address] * BUN level (09/28/2019 5:28 AM CIGAR BINDER) Only the most recent of 2 results within the time period is included. BUN 11 8 - 23 mg/dL [facility] Specimen Plasma specimen Performing Organization Address [facility] P kb Number [facility] [address] [place] [address] PATHOLOGY AND GENOMIC MEDICINE [address] * Creatinine level (09/28/2019 5:28 AM CIGAR BINDER) Only the most recent of 2 results within the time period is included. Creatinine 0.80 0.50 - 0.90 mg/dL [facility] Specimen Plasma specimen Performing Organization Address [facility] P kb Number [facility] [address] [place] [address] PATHOLOGY AND [facility] MEDICINE [address] * Potassium level (09/27/2019 2:44 PM CIGAR BINDER) Only the most recent of 2 results within the time period is included. Potassium 3.9 3.5 - 5.0 mEq/L [facility] Specimen Plasma specimen Performing Organization Address [facility] P kb Number [facility] [address] [place] [address] PATHOLOGY AND [facility] MEDICINE [address] * Vancomycin level, trough (09/27/2019 11:15 AM CIGAR BINDER) Vancomycin, 10.6 10.0 - 20.0 ug/mL [facility] trough Comment: GUILLERMINA POLLARD Therapeutic Ranges: [facility] Peak 30.0 - 40.0 ug/mL Trough 10.0 - 20.0 ug/mL Specimen Serum Performing Organization Address [facility] Code P kb Number [facility] DE[facility]MENT [address] [place], [place] [address] PATHOLOGY AND GENOMIC MEDICINE [place] BUDDHIST CLEAR [address] [place] [address] [facility] * CT Upper Extremity Wo Right (09/26/2019 8:20 PM CIGAR BINDER) Specimen Narrative Performed At EXAMINATION: CT UPPER EXTREMITY WO RIGHT FLORA T INDICATION: Elbow pain. COMPARISON: Elbow radiographs dated 09/07 TECHNIQUE: Helical axial CT images of t he elbow was acquired without intravenous contrast. Sagittal coronal planar refor mats were reviewed. Iterative reconstruction and/or automated exposur e control was used for dose reduction technique. IMPRESSION: 1.Thickening of the skin as well as nikia ma of the subcutaneous fat overlying the olecranon process consistent with cellu litis. There is extensive confluent subcutaneous edema at the site and in t he absence of contrast an underlying abscess or olecranon bursitis is difficult to exclude. Recom mend a contrast-enhanced examination or MRI. 2.No evidence of osteomyelitis. No elbo w joint effusion to suggest septic arthritis. 3.Subcutaneous edema involving the imag ed portion of the distal arm and proximal forearm without evidence of a discrete intramuscular or subcutaneous fluid collection consistent with cellulitis. Procedure Note Interface, Radiology Results Incoming - 09/26/2019 8:44 PM CIGAR BINDER EXAMINATION: CT UPPER EXTREMITY WO RIGHT INDICATION: Elbow pain. COMPARISON: Elbow radiographs dated 09/25/2019 TECHNIQUE: Helical axial CT images of the elbow was acquired without intravenous contrast. Sagittal coronal planar reformats were reviewed. Iterative reconstruction and/or automated exposure control was used for dose reduction technique. IMPRESSION: 1.Thickening of the skin as well as césar a of the subcutaneous fat overlying the olecranon process consistent with cellulitis. There is extensive confluent subcutaneous edema at the site and in the absence of contrast an underlying abscess or olecranon bursitis is difficult to exclude. Recommend a contrast-enhanced examination or MRI. 2.No evidence of osteomyelitis. No elbow joint effusion to suggest septic arthritis. 3.Subcutaneous edema involving the image d portion of the distal arm and proximal forearm without evidence of a discrete intramuscular or subcutaneous fluid collection consistent with cellulitis. Performing Organization Address City/State/ZIP Code P kb Number [facility] [address] [place] [address] * XR Elbow 3+ Vw Right (09/25/2019 12:50 PM CIGAR BINDER) Specimen Narrative Performed At Procedure:XR ELBOW 3 VW RIGHT [facility] REFERRING PHYSICIAN: ROSALIND SULLIVAN HISTORY: rule out foreign body COMPARISON: None FINDINGS: No evidence of fracture or dislocation is seen. The joint spaces are maintained. No osteolytic or osteoblastic lesion is identify. Subcutaneous edema along the medial pos terior aspect of the elbow is noted. Regional soft tissue is otherwise unrem arkable. No radiopaque foreign body is seen. XR ELBOW 3 VW RIGHT acquired. IMPRESSION: No radiographic evidence of radiopaque foreign-body, acute fracture or dislocation of the right elbow. [id number] Procedure Note Interface, Radiology Results Incoming - 09/25/2019 1:18 PM CIGAR BINDER Procedure:XR ELBOW 3 VW RIGHT REFERRING PHYSICIAN: ROSALIND SULLIVAN HISTORY: rule out foreign body COMPARISON: None FINDINGS: No evidence of fracture or dislocation is seen. The joint spaces are maintained. No osteolytic or osteoblastic lesion is identify. Subcutaneous edema along the medial posterior aspect of the elbow is noted. Regional soft tissue is otherwise unremarkable. No radiopaque foreign body is seen. XR ELBOW 3 VW RIGHT acquired. IMPRESSION: No radiographic evidence of radiopaque foreign-body, acute fracture or dislocation of the right elbow. [facility][id number] Performing Organization Address City/[facility]/ZIP Code P kb Number [facility] [address] [place] [address] * Blood culture, aerobic & anaerobic (09/25/2019 12:14 PM CIGAR BINDER) Only the most recent of 2 results within the time period is included. Pathologist [facility] Blood culture No growth after 5 days of [facility] isolate incubation. BUDDHIST Comment: HOSPITAL Specimen Information Specimen Source: Blood Specimen Site: Antecubital, left Specimen Blood - Antecubital, left Performing Organization Address City/State/ZIP Code P kb Number [facility] DEPARTMENT OF [address] [place] [address] PATHOLOGY AND [place] [address] HOSPITAL * Comprehensive metabolic panel (09/25/2019 11:55 AM CIGAR BINDER) Sodium 141 135 - 148 mEq/L [facility] Potassium 3.1 (L) 3.5 - 5.0 mEq/L [facility] Chloride 99 98 - 112 mEq/L [facility] CO2 28 24 - 31 mEq/L [facility] Anion gap 14@ANIO 7 - 15 mEq/L [facility] BUN 12 8 - 23 mg/dL [facility] Creatinine 0.80 0.50 - 0.90 mg/dL [facility] Glucose 110 (H) 65 - 99 mg/dL [facility] Calcium 10.2 8.8 - 10.2 mg/dL [facility] Protein 7.4 6.3 - 8.3 g/dL [facility] Comment: [facility] [id number] g/dL [facility] 1 spqu0398.4-7.6 g/dL 7 months-5kwvt691.1-7.3 g/dL 1-2 hxoln777.6-7.5 g/dL >3 cjfbe953.0-8.0 g/dL 18-5396225.3-8.3 g/dL Albumin 4.0 3.5 - 5.0 g/dL [facility] A/G ratio 1.2 0.7 - 3.8 [facility] Alkaline 107 (H) 35 - 104 U/L [facility] phosphatase [facility] [facility] AST 16 10 - 35 U/L [facility] ALT 12 5 - 50 U/L [facility] Total bilirubin 0.6 0.0 - 1.2 mg/dL [facility] Specimen Plasma specimen Performing Organization Address City/State/ZIP Code [place] [address] [place], [place] [address] [facility]OM[facility] [address] 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
--- OUTSIDE RECORDS SUMMARY | 2020-07-01 08:25 | XMS REPORT | Continuity of Care Document ---
Author Author [facility] t Organization [facility] Address [address] [place] [address] Phone Unavailable Care Team Providers Care Live Truck Technician Name Role Phone Huber BARRIOS, S Jacques PCP Ruddy BOWDEN, Rod Attphys Juvenal FUNES, Yves Attphys Unavailable Olegario BARRIOS, Demarcus Mayo Attphys Marilu BARRIOS, Alena Madrigal Attphys Ton BARRIOS, Melvin Cowan Attphys Alysia BARRIOS, Luis Enrique Baker Attphys [phone] ROHAN MICHEL Admphys Unavailable Payers Payer Name Policy Type Policy Number Effective Date Expiration Date Narcisa grimes [facility] [id number] [id number] 2018 00:00:00 Jay [id number] [id number] 2011 00:00:00 Jay Sarmiento Problems Condition Name Condition Details Condition Category Status Onset Date Resolution Date Last Treatment Date Treating Clinician Comments Source Cellulitis Cellulitis Disease Active 2019-09-25 00:00:00 Jay Sarmiento Septic olecranon bursitis of right elbow Septic olecra non bursitis of right elbow Disease Active 2019-09-25 00:00:00 Overview: Added automatically from request for surgery [id number] Jay Sarmiento Atrial fibrillation with rapid ventricular [...] drug Active Anaphylaxis 2018-06-22 00:00:00 Jay bernstein Hhwdhfyk-Hlusqjcxz-Jz-Georgi-Men Propensity to adverse reactions to dr ug [...] drug Active 2018-06-22 00:00:00 Other [place] Tizanidine Propensity to adverse reactions to drug Active 2018-06-22 00:00:00 Jay Majoris t Diazepam Propensity to adverse reactions to drug Active 2018-06-22 00:00:00 Jay Sarmiento Social History Social Habit Start Date Stop Date Quantity Comments Source History of tobacco use Cigarette Smoker Jay Sarmiento History SDOH Alcohol Std Drinks Jay Sarmiento History SDOH Alcohol Binge Jay Sarmiento Sex Assigned At [place] Sarmiento Cigarettes smoked current (pack per day) [...] MG tablet 2019-10-01 12:56:09 Y es .1mg Q.[id number] Take 0.1 mg by mouth 3 (three) times a day. Jay Sarmiento pregabalin (LYRICA) 200 MG capsule 2019-10-01 12:56:09 Y es 200mg Q.[id number] Take 200 mg by mouth 3 (three) times a day. Jay Sarmiento ketoconazole (NIZORAL) 2 % shampoo 2019-10-01 12:56:09 Yes QD Apply topically daily. Jay Sarmiento cyclobenzaprine (FLEXERIL) 10 mg tablet 2019-10-01 12:56:09 Yes 10mg Q.5998378696398344488T Take 10 mg by mouth 3 (three) [...] 2019-09-30 00:00: 00 2019-10-10 23:59:00 No 600mg Q.2570905033107554105S Take 2 capsules (600 mg total) by [...] [employer] STAIN 2019-09-29 10:34:00 Gael Melvin [place] AN ELECTIVE SUPRAGLOTTIC AIRWAY 2019-09-29 10:33:48 Todd Zoey Galarzabroderick [place] EXCISION, OF OLECRANON BURSA 2019-09-29 10:12:00 Gael Melvin FUNGUS CULTURE 2019-09-29 09:34:00 Gael Melvin [place] [employer] CULTURE 2019-09-29 09:34:00 Gael Melvin [place] ECG 12-LEAD 2019-09-29 07:29:16 Rohan Michel BUN [...] Date/Time End Date/Time [facility] Source 2020-02-27 19:22:45 2020-02-27 22:13:00 Emergency [facility] ([facility]) [id number] 2019-09-25 00:00:00 2019-10-01 00:00:00 Inpatient MICHEL, IMRA N [facility] [id number] Jay Sarmiento Results Test Description Test Time Test Comments Results Result Comments Source AFB culture 2019-11-11 00:13:32 Test Item AFB culture isolate (test code = 543-9) No growth after 6 we eks of incubation. Specimen InformationSpecimen Source: Specimen Site: Elbow: Right Olecranon Bural fluid Jay Ramsayngus [id number] 00:15:13* Test Item Value Reference Range Interpretation Comments Fungus culture isolate (test code = 1441) No growth af ter 4 weeks of incubation. Specimen Information Specimen Source: Specimen Site: Elbow: Right Olecranon Bural fluid [place] [facility] [id number] 08:33:36* Test Item Value Reference Range Interpretation Comments Anaerobic culture isolate (test code = 552) No anaerobic organis ms isolated. Specimen InformationSpecimen Source: [facility] Site: Elbow: Right Olecranon Bural fluid [place] MethodistAFB [id number] 19:09:33* Test Item Value Reference Range Interpretation Comments AFB stain (test code = 676-7) No acid fast bacilli (AFB) seen. Specimen InformationSpecimen Source: Specimen Site: Elbow: Right Olecranon Bural fluid [place] MoriahistFungus [id number] 19:09:33* Test Item Value Reference Range Interpretation Comments Fungus smear (test code = 1443) No fungi observed. Specimen InformationSpecimen Source: Specimen Site: Elbow: Right Olecranon Bural fluid [place] MethodistGram [id number] 19:09:33Gram stain isolateModerate WBC'sNo organisms seen Comment: Specimen InformationSpecimen Source: Specimen Site: Elbow: Right Olecranon Bural fluid [facility] Blood culture, aerobic & [id number] 19:03:03* Test Item Value Reference Range Interpretation Comments Blood culture isolate (test code = 600-7) No growth after 5 days of incubation. Specimen InformationSpecimen Source: BloodSpecimen Site: Antecubital, left [facility] [id number] 06:05:42* Test Item Value Reference Range Interpretation Comments Sodium (test code = 2951-2) 142 135- 148 mEq/L Potassium (test code = 2823-3) 3.3 3.5- 5.0 mEq/L L Chloride (test code = 2075-0) 107 98- 112 mEq/L CO2 (test code = 2028-9) 23 24- 31 mEq/L L Anion gap (test code = 87046-1) 12@ANIO 7- 15 mEq/L BUN (test code = 3094-0) 7 mg/dL 8-23 L Creatinine (test code = 2160-0) 0.60 mg/dL 0.5-0.9 Glucose (test code = 2345-7) 125 mg/dL 65-99 H Calcium (test code = 81200-8) 9.2 mg/dL 8.8-10.2 Lab Interpretation (test code = 36923-8) Abnormal Thompson MethodistEstimated [id number] 06:05:42* Test Item Value Reference Range Interpretation Comments Estimated GFR (test code = 5488) >=90 mL/min/1.73 m2 Catergory Units InterpretationG1 >=90 Normal or highG2 60-89 Mildly jyoaeufpeS5m 45-59 Mildly to moderately qflzzfavkK3c 30-44 Moderately to severely decreasedG4 15-29 Severely decreasedG5 <15 Kidney failureThe eGFR was calculated using the Chronic Kidney Disease Epidemiology Collaboration (CKD-EPI) equation. Interpretation is based on recommendations of the National Kidney Foundation-Kidney Disease Outcomes Quality Initiative (NKF-KDOQI) published in 2014. [place] MethodistCBC with platelet and gkpyewmkcqfz9855-50-23 05:51:32* Test Item Value Reference Range Interpretation Comments WBC (test code = 34550-3) 8.26 4.50- 11.00 k/uL RBC (test code = 53036-9) 3.53 m/uL 4.2-5.5 L HGB (test code = 718-7) 10.7 g/dL 12-16 L HCT (test code = 4544-3) 33.2 % 37-47 L MCV (test code = 787-2) 94.1 fL 82-100 MCH (test code = 785-6) 30.3 pg 27-34 MCHC (test code = 786-4) 32.2 g/dL 31-37 RDW - SD (test code = 49570-4) 45.3 fL 37-55 MPV (test code = 32825-2) 12.4 fL 8.8-13.2 Platelet count (test code = 22104-4) 152 150- 400 k/uL Nucleated RBC (test code = 01565-0) 0.00 /100 WBC Neutrophils (test code = 20988-8) 72.7 % 39-69 H Lymphocytes (test code = 57583-2) 17.1 % 25-45 L Monocytes (test code = 26118-9) 9.2 % 0-10 Eosinophils (test code = 57438-8) 0.2 % 0-5 Basophils (test code = 98720-1) 0.4 % 0-1 Lab Interpretation (test code = 54908-5) Abnormal Thompson MethodistECG 12 fhxg0377-71-22 11:52:50* Test Item Value Reference Range Interpretation Comments Ventricular rate (test code = 253) 74 Atrial rate (test code = 255) 74 NV interval (test code = 266) 136 QRSD [...] age undetermined-Abnormal ECG-No previous ECGs available- Jay UemnokovnLxtwhm8779-05-71 10:33:48MoZoey quinonez 09/29/2019 10:34 AMAirwayDate/Time: 09/29/2019 10:20 AMPerformed by: Zoey Brooks StraubAuthorized by: Samuel Hatfield MD Location: ORUrgency: ElectiveDifficult Airway: No Anesthesiologist: Samuel Hatfield, NAJMAesident/OCCUPATIONAL THERAPY TEACHER/AA: Zoey Brooks StraubPerformed by: resid ent/OCCUPATIONAL THERAPY TEACHER/AAPreoxygenated with 100% O2: Yes C-spine Precautions Maintained Throu ghout: Yes Mask Ventilation: Easy maskFinal Airway Type: Supraglottic airwayF inal LMA: UniqueLMA Size: 4Number of Attempts at Approach: 1Houstejal Sarmiento Creatinine [id number] 06:03:56* Test Item Value Reference Range Interpretation Comments Creatinine (test code = 2160-0) 0.80 mg/dL 0.5-0.9 Jay MethodistBUN aarrd1897-95-85 06:03:56* Test Item Value Reference Range Interpretation Comments BUN (test code = 3094-0) 11 mg/dL 8-23 Jay SarmientoPotassium [id number] 15:26:31* Test Item Value Reference Range Interpretation Comments Potassium (test code = 2823-3) 3.9 3.5- 5.0 mEq/L Jay SarmientoVancomycin level, [id number] 11:56:46* Test Item Value Reference Range Interpretation Comments Vancomycin, trough (test code = 01003-4) 10.6 ug/mL 10-20 Therapeutic Ranges: Peak 30.0 - 40.0 ug/mL Trough 10.0 - 20.0 ug/mL Jay SarmientoCT Upper Extremity Wo [id number] 20:41:06Hm Interface, Radiology Results Incoming - 09/26/2019 [...] or subcutaneous fluid collection consistent with cellulitis. [place] [facility]iahsan [facility] centerXR Elbow 3+ Vw Whljo9926-93-92 13:15:45Hm Interface, Radiology Results Incoming - 09/25/2019 [...] acute fracture or dislocation of the right elbow.[id number] Jay MethodistComprehensive metabolic nxvdk5294-66-83 12:53:24* Test Item Value Reference Range Interpretation Comments Sodium (test code = 2951-2) 141 135- 148 mEq/L Potassium (test code = 2823-3) 3.1 3.5- 5.0 mEq/L L Chloride (test code = 2075-0) 99 98- 112 mEq/L CO2 (test code = 2027-9) 28 24- 31 mEq/L Anion gap (test code = 67342-8) 14@ANIO 7- 15 mEq/L BUN (test code = 3094-0) 12 mg/dL 8-23 Creatinine (test code = 2160-0) 0.80 mg/dL 0.5-0.9 Glucose (test code = 2345-7) 110 mg/dL 65-99 H Calcium (test code = 38014-2) 10.2 mg/dL 8.8-10.2 Protein (test code = 2885-2) 7.4 g/dL 6.3-8.3 Sywiqfg6703.6-7.0 g/dL1 cuep3002.4-7.6 g/dL7 months-3psag735.1-7.3 g/dL1-2 rhwyj309.6-7.5 g/dL>3 ukitz531.0-8.0 g/sV68-7214938.3-8.3 g/dL Albumin (test code = 1751-7) 4.0 g/dL 3.5-5 A/G ratio (test code = 1759-0) 1.2 0.7-3.8 Alkaline phosphatase (test code = 6768-6) 107 U/L 35-104 H AST (test code = 1920-8) 16 U/L 10-35 ALT (test code = 1742-6) 12 U/L 5-50 Total bilirubin (test code = 1974-) 0.6 mg/dL 0-1.2 Lab Interpretation (test code = 25124-6) Abnormal Jay [facility]
--- NOTE | 2020-07-01 08:30 | NUR ---
Contacted [facility] to transport pt to room 219
--- NOTE | 2020-07-01 08:59 | Diagnostic Imaging Report ---
EXAM: Right Lower Extremity Venous Duplex Ultrasound INDICATION: right leg pain COMPARISON: None TECHNIQUE: Kumari scale, color Doppler and spectral waveform analysis of the right lower extremity deep venous system was performed. FINDINGS: Common Femoral: Fully compressible with normal spontaneous waveforms. Proximal Greater Saphenous: Fully compressible. Femoral: Fully compressible with normal spontaneous waveforms. Normal response to augmentation. Proximal Deep Femoral: Normal spontaneous waveforms. Popliteal: Fully compressible with normal spontaneous waveforms. IMPRESSION: No evidence of deep venous thrombosis in the right lower extremity. Signed by: Romaine Baker MD on 07/01/2020 8:56 AM
[2020-07-01] MEDS: SODIUM CHLORIDE 0.9% 1000ML 1,000 ML IV SCH ×2 (09:05→18:29)
[2020-07-01] MEDS ORDERED: SODIUM CHLORIDE 0.9% 1000ML 1,000 ML ONE (09:06)
--- NOTE | 2020-07-01 09:10 | Diagnostic Imaging Report ---
FEMUR 2 VIEW RT - HOPD - Multiple views HISTORY: ^Leg pain COMPARISON: None available. FINDINGS: Bones: No acute displaced fracture. Osseous alignment is within normal limits. Joints: Status post knee arthroplasty without acute findings. Soft tissues: The soft tissues appear unremarkable. IMPRESSION: No acute radiographic abnormality. Signed by: Romaine Baker MD on 07/01/2020 9:07 AM
--- NOTE | 2020-07-01 09:43 | NUR ---
Report to ALYSIA De Los Santos
--- NOTE | 2020-07-01 09:43 | NUR ---
[facility] here to transport pt to room 214
[2020-07-01 10:30] VITALS: BP 142/85
--- NOTE | 2020-07-01 10:35 | NUR ---
RECEIVED PT FROM [facility], PAIN (04/15) IN RT LATERAL THIGH. SOFT ROUND TISSUE NOTED ABOUT SIZE OF QUARTER. IV IN RAC AREA 20G CATHETER NOTED. PT HAS MULTI ALLERGIES NOTED. PT USES WALKER WHEN AMBULATING.
[2020-07-01 12:00] VITALS: BP 118/67
[2020-07-01] MEDS ORDERED: CLONIDINE HCL0.1 MG PO (12:00)
[2020-07-01] MEDS ORDERED: POTASSIUM CHLO20 ME1 PO (12:00)
[2020-07-01] MEDS ORDERED: FUROSEMIDE40 MG PO (12:00)
[2020-07-01] MEDS ORDERED: ONDANSETRON2 MG/1 ML PO (12:00)
[2020-07-01] MEDS ORDERED: ELIQUIS2.5 MG PO (12:00)
[2020-07-01] MEDS ORDERED: LEFLUNOMIDE10 MG PO (12:00)
[2020-07-01] MEDS ORDERED: PERCOCET 10-321 EACH PO (12:00)
[2020-07-01] MEDS ORDERED: LYRICA100 MG PO (12:00)
[2020-07-01] MEDS ORDERED: PROTONIX20 MG PO (12:00)
[2020-07-01] MEDS ORDERED: ASPIRIN81 MG PO (12:00)
[2020-07-01] MEDS ORDERED: PREDNISONE5 MG PO (12:00)
[2020-07-01] MEDS ORDERED: ZEBETA10 MG PO (12:00)
[2020-07-01] MEDS ORDERED: POTASSIUM CHLORIDE 20 MEQ TAB CR PO ONE ×2 (13:04→15:30)
[2020-07-01] MEDS ORDERED: NON-FORMULARY MEDICATION (Oxycodone Hcl/Acetaminophen (Percocet 10-325 Mg Tablet) 1 TAB) PO PRN (13:15)
[2020-07-01] MEDS: CLONIDINE HCL 0.1 MG TAB PO SCH ×2 (14:30→20:18)
[2020-07-01] MEDS: PREGABALIN 50 MG CAP PO SCH ×2 (14:30→20:18)
[2020-07-01 16:00] VITALS: BP 136/58
[2020-07-01] MEDS: OXYCODONE/ACETAMINOPHEN 5-325 1 EACH TABLET PO PRN (16:56)
--- NOTE | 2020-07-01 17:06 | History and Physical ---
CHIEF COMPLAINT: Right thigh pain. HISTORY OF PRESENT ILLNESS: This is a 70-year-old woman, who has multiple back surgeries in the past. In fact, she is planned to have another one, came in with one-day history of severe right thigh pain on and all squeezing sensation. The patient states she gets right leg radiculopathy and this is different. The patient denies any trauma or hurting or so or falling. Denies dizziness. No chest pain. No shortness of breath. No near nausea, vomiting, or diarrhea. She does have irritable bowel syndrome. PAST MEDICAL AND SURGICAL HISTORY: 1. Atrial fibrillation. 2. Rheumatoid arthritis. 3. Previous back surgery. 4. Previous cholecystectomy. 5. Previous hysterectomy. 6. Previous bilateral knees replacement. 7. Hypertension. MEDICATIONS: Please see medication reconciliation form. ALLERGIES: MULTIPLE, PLEASE SEE THE LIST. SOCIAL HISTORY: Smokes. FAMILY HISTORY: Dad has rheumatoid arthritis. REVIEW OF SYSTEMS: A 10-point review of systems obtained and nothing else is significant other than what is stated in HPI. PHYSICAL EXAMINATION: VITAL SIGNS: Temperature 97.5, pulse 59, respiratory rate 17, and blood pressure 113/67. GENERAL: No acute distress. SKIN: No rash. HEENT: Sclerae anicteric. Oropharynx is clear. LUNGS: Clear. HEART: Regular rate and rhythm. Normal S1 and S2. GI: Abdomen is soft and distended. NEUROLOGIC: Alert and oriented x3. Cranial nerves 2 through 12 grossly intact. PSYCHIATRIC: No hallucination. MUSCULOSKELETAL: Painless range of motion. LABORATORY DATA: Potassium 2.5. Creatinine normal. CBC unremarkable. CPK of 477. ASSESSMENT AND PLAN: 1. Right thigh pain. Given the fact that she is on Eliquis and the fact that this is different than her radiculopathy pain, we will go ahead and get a CT to rule out hematoma, probably unlikely since no trauma, no injury. We will also monitor her hemoglobin. 2. Severe hypokalemia, likely due to Lasix. We will go and replete and repeat her potassium level. We will also check a magnesium level. 3. Rule out rhabdomyolysis. We will monitor her CPK. 4. Atrial fibrillation. We will continue Eliquis if there is no hematoma. 5. Rheumatoid arthritis. We will continue her prednisone and her Arava. The patient is immunocompromised. We will also continue her Percocet as needed. 6. Gastrointestinal and deep venous thrombosis prophylaxis, Eliquis. Evelineching MD TIMMY Wilder/JOAN /[id number]
[2020-07-01] MEDS: FUROSEMIDE 40 MG TAB PO SCH (18:28)
[2020-07-01] MEDS: APIXAB 2.5 MG TABLET PO SCH (18:28)
[2020-07-01 18:31] LABS: BASOPHILS # (AUTO) 0.1 (0.0-0.1); EOSINOPHILS # (AUTO) 0.1 (0.0-0.4); HEMATOCRIT 37.6 % (34.2-44.1); HEMOGLOBIN 12.1 g/dL (12.0-16.0); LYMPHOCYTES # (AUTO) 1.6 (1.0-3.2); LYMPHOCYTES % 33.5 % (18.0-39.1); MEAN CORPUSCULAR HEMOGLOBIN 30.4 pg (28-32); MEAN CORPUSCULAR HGB CONC 32.2 g/dL (31-35); MEAN CORPUSCULAR VOLUME 94.5 fL (81-99); MONOCYTES # (AUTO) 0.5 (0.2-0.8); MONOCYTES % 10.7 % (4.4-11.3); NEUTROPHILS # (AUTO) 2.5 (2.1-6.9); NEUTROPHILS % 53.2 % (38.7-80.0); PLATELET COUNT 125 x10e3/uL (140-360); RED BLOOD COUNT 3.98 x10e6/uL (3.6-5.1); RED CELL DISTRIBUTION WIDTH 13.7 % (11.7-14.4)
[2020-07-01 18:49] LABS: ANION GAP 12.6 mmol/L (8-16); BLOOD UREA NITROGEN 10 mg/dL (7-26); BUN/CREATININE RATIO 11 (6-25); CALCIUM 8.4 mg/dL (8.4-10.2); CARBON DIOXIDE 27 mmol/L (22-29); CHLORIDE 106 mmol/L (98-107); CREATINE KINASE 287 IU/L (29-168); CREATININE, SERUM 0.89 mg/dL (0.57-1.11); EST GLOMERULAR FILTRATION RATE > 60 ML/MIN (60-); GLUCOSE 149 mg/dL (74-118); MAGNESIUM 1.8 MG/DL (1.3-2.1); POTASSIUM 3.6 mmol/L (3.5-5.1); SODIUM 142 mmol/L (136-145)
[2020-07-01 19:10] LABS: FREE T4 (FREE THYROXINE) 1.07 ng/dL (0.8-1.8); THYROID STIMULATING HORMONE 0.501 uIU/mL (0.350-4.940)
--- NOTE | 2020-07-01 19:29 | NUR ---
walking rounds complete, report given to oncoming nurse.
[2020-07-01] MEDS ORDERED: POTASSIUM CHLORIDE 20MEQ/15ML UDC PO ONE (19:30)
--- NOTE | 2020-07-01 19:30 | NUR ---
Patient received sitting up in bed. AAO x 4. Patient had no complaints of pain. Respirations even and non-labored. IVF infusing at 75 cc/hr. Safety measures in place. Patient instructed to call for assistance when needed. Call light within reach.
[2020-07-01 20:00] VITALS: BP 166/61
[2020-07-01 21:00] VITALS: BP 166/61
[2020-07-02 00:09] VITALS: BP 156/78
[2020-07-02 04:00] VITALS: BP 132/89
[2020-07-02] MEDS: OXYCODONE/ACETAMINOPHEN 5-325 1 EACH TABLET PO PRN ×2 (05:21→10:52)
[2020-07-02 05:30] LABS: BASOPHILS # (AUTO) 0.1 (0.0-0.1); BASOPHILS % 1.2 % (0.0-1.0); EOSINOPHILS # (AUTO) 0.1 (0.0-0.4); EOSINOPHILS % 1.9 % (0.0-6.0); HEMATOCRIT 35.7 % (34.2-44.1); HEMOGLOBIN 11.4 g/dL (12.0-16.0); LYMPHOCYTES # (AUTO) 2.7 (1.0-3.2); LYMPHOCYTES % 50.9 % (18.0-39.1); MEAN CORPUSCULAR HGB CONC 31.9 g/dL (31-35); MEAN CORPUSCULAR VOLUME 93.9 fL (81-99); MONOCYTES # (AUTO) 0.6 (0.2-0.8); MONOCYTES % 11.5 % (4.4-11.3); NEUTROPHILS # (AUTO) 1.8 (2.1-6.9); NEUTROPHILS % 34.1 % (38.7-80.0); PLATELET COUNT 113 x10e3/uL (140-360); RED CELL DISTRIBUTION WIDTH 13.7 % (11.7-14.4)
[2020-07-02 05:57] LABS: ALANINE AMINOTRANSFERASE 19 IU/L (0-55); ALBUMIN 3.2 g/dL (3.5-5.0); ALBUMIN/GLOBULIN RATIO 1.1 (0.8-2.0); ALKALINE PHOSPHATASE 93 IU/L (40-150); ANION GAP 13.4 mmol/L (8-16); BLOOD UREA NITROGEN 9 mg/dL (7-26); BUN/CREATININE RATIO 12 (6-25); CALCIUM 8.3 mg/dL (8.4-10.2); CARBON DIOXIDE 24 mmol/L (22-29); CHLORIDE 108 mmol/L (98-107); CREATININE, SERUM 0.77 mg/dL (0.57-1.11); EST GLOMERULAR FILTRATION RATE > 60 ML/MIN (60-); GLUCOSE 90 mg/dL (74-118); POTASSIUM 3.4 mmol/L (3.5-5.1); SODIUM 142 mmol/L (136-145)
[2020-07-02] MEDS: SODIUM CHLORIDE 0.9% 1000ML 1,000 ML IV SCH (06:51)
--- NOTE | 2020-07-02 07:00 | NUR ---
Walking rounds done. Patient resting comfortably. Shift report given to oncoming nurse regarding patient status.
--- NOTE | 2020-07-02 07:56 | NUR ---
Patient requesting to be discharged this AM. Patient states, "My pain is managed, I can take my home medications at home, this includes potassium. Can you let the doctor know?" Notified of patients concern. aware K3.4. Per , "I will be there before noon." Notified patient of doctor's message
[2020-07-02 08:00] VITALS: BP 174/74
[2020-07-02] MEDS: APIXAB 2.5 MG TABLET PO SCH (08:09)
[2020-07-02] MEDS: CLONIDINE HCL 0.1 MG TAB PO SCH (08:09)
[2020-07-02] MEDS: FUROSEMIDE 40 MG TAB PO SCH (08:09)
[2020-07-02] MEDS: PREGABALIN 50 MG CAP PO SCH (08:09)
[2020-07-02 08:36] VITALS: BP 174/74
[2020-07-02] MEDS ORDERED: NON-FORMULARY MEDICATION (Leflunomide 20 MG) PO SCH (09:00)
[2020-07-02] MEDS ORDERED: ASPIRIN 81 MG CHEW TAB PO SCH (09:00)
[2020-07-02] MEDS ORDERED: PREDNISONE 5 MG TAB PO SCH (09:00)
[2020-07-02] MEDS ORDERED: BISOPROLOL FUMARATE 10 MG TAB PO SCH (09:00)
[2020-07-02] MEDS ORDERED: PANTOPRAZOLE SOD 40 MG TABEC PO SCH (09:00)
--- NOTE | 2020-07-02 10:28 | Diagnostic Imaging Report ---
TECHNIQUE: Computed tomography imaging of the right femur was performed WITHOUT injected contrast. Dose modulation, iterative reconstruction, and/or weight based adjustment of the mA/kV was utilized to reduce the radiation dose to as low as reasonably achievable. HISTORY: Rhabdomyolysis, evaluate for hematoma COMPARISON: None available. FINDINGS: No acute fracture. Healed remote fracture of the right inferior pubic ramus. No lytic or blastic lesion. Right hip joint maintained. 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 Right total knee arthroplasty. Partially visualized lower spinal hardware. No soft tissue hematoma or fluid collection. No concerning mass. Thickening of the right hamstring origin with ossification. IMPRESSION: No hematoma Signed by: Dr. Cody Wray M.D. on 07/02/2020 10:25 AM
[2020-07-02 10:58] VITALS: BP 155/62
[2020-07-02 12:00] VITALS: BP 147/72
--- NOTE | 2020-07-02 13:30 | NUR ---
Left AC IV discontinued. No signs of infiltration noted. 2x2 and coban placed. Taken via wheelchair to taxi. AAOX4 to time, person, place, situation. Respirations even and unlabored. Discharge instructions and all personal belongings taken with patient. No rx available.
--- NOTE | 2020-07-02 18:26 | Discharge Summary ---
FINAL DIAGNOSIS: Right thigh pain of unclear etiology. SECONDARY DIAGNOSES: 1. Atrial fibrillation, on Eliquis. 2. Rheumatoid arthritis. 3. Severe hypokalemia, resolved. CONSULTANTS: None. PROCEDURES/STUDIES PERFORMED: CT of the right thigh did not show any hematoma. HISTORY: Per dictated H and P. HOSPITAL COURSE: The patient's potassium was repleted. Her mild CPK elevation is coming down. The patient's pain is better. The patient will be discharged home and follow up with her physician. The patient was seen and examined today. CONDITION ON DISCHARGE: Improved. DISCHARGE MEDICATIONS: Please see medication reconciliation form. Yiching MD TIMMY Wilder/JOAN /[id number]
== END 2020-07-02 13:28 | disposition home or self-care (01) ==
LOC: FSED 06:30 → ERHOLD 07:40 → MED/SURG2 10:39
PROVIDERS: ADMIT Internal Medicine; ATTEND Internal Medicine
DX: M79.651 Pain in right thigh (principal); I48.91 Unspecified atrial fibrillation; Z79.01 Long term (current) use of anticoagulants; M06.9 Rheumatoid arthritis, unspecified; E87.6 Hypokalemia; Z96.653 Presence of artificial knee joint, bilateral; M62.82 Rhabdomyolysis; I10 Essential (primary) hypertension; Z20.828 Contact with and (suspected) exposure to other viral communicable diseases
CPT/HCPCS: 36415 ×2; 73552; 73700; 80048; 80053; 82550; 82553; 82948; 83735; 84439; 84443; 84484; 85025 ×2; 93971 ×2; 99284; G0378 ×2; J7030; J7512; S0164; U0002

== ENCOUNTER 2020-12-08 12:35 | Emergency (ER) | payer MEDICARE, OTHER ==
[~2020-12-08] VITALS: Ht 157.5 cm; Wt 54.4 kg
[~2020-12-08 12:35] MED LIST: ASPIRIN81 MG PO; CLONIDINE HCL0.1 MG PO; ELIQUIS2.5 MG PO; FUROSEMIDE40 MG PO; LEFLUNOMIDE10 MG PO; LYRICA100 MG PO; ONDANSETRON2 MG/1 ML PO; PERCOCET 10-321 EACH PO; POTASSIUM CHLO20 ME1 PO; PREDNISONE5 MG PO; PROTONIX20 MG PO; ZEBETA10 MG PO
[2020-12-08 16:55] VITALS: BP 110/56
== END 2020-12-08 15:57 | disposition home or self-care (01) ==
LOC: ER 13:02
DX: S44.8X2A Injury of other nerves at shoulder and upper arm level, left arm, initial encounter (principal); S44.8X1A Injury of other nerves at shoulder and upper arm level, right arm, initial encounter; Y93.84 Activity, sleeping; Y92.008 Other place in unspecified non-institutional (private) residence as the place of occurrence of the external cause; R53.1 Weakness; I10 Essential (primary) hypertension; I48.91 Unspecified atrial fibrillation; E78.5 Hyperlipidemia, unspecified; F41.9 Anxiety disorder, unspecified; M06.9 Rheumatoid arthritis, unspecified; M79.7 Fibromyalgia
CPT/HCPCS: 70450; 99283

== ENCOUNTER 2025-01-18 18:34 | Emergency (ER) | payer MEDICARE, OTHER ==
[~2025-01-18] VITALS: Ht 152.4 cm; Wt 66.7 kg
[2025-01-18] MEDS ORDERED: FLANDERS BUTTOC30 GM TOP (19:24)
[2025-01-18] MEDS ORDERED: FLUCONAZOLE100 MG PO (19:37)
[2025-01-18] MEDS ORDERED: DOXYCYCLINE HY100 MG PO (19:38)
[2025-01-18 20:00] VITALS: PULSE 53; RESP 16; TEMP 97.8; O2SAT 98
[2025-01-18] MEDS ORDERED: METHOTREXA25 MG/1 ML SC (20:06)
[2025-01-18] MEDS ORDERED: VITAMIN D350 MCG (20:06)
[2025-01-18] MEDS ORDERED: TIZANIDINE HCL4 M1 PO (20:06)
[2025-01-18] MEDS ORDERED: HYDROCODON-ACE1 EAC9 (20:06)
== END 2025-01-18 20:00 | disposition home or self-care (01) ==
LOC: FSED 18:43
DX: L30.9 Dermatitis, unspecified (principal); I10 Essential (primary) hypertension; I48.91 Unspecified atrial fibrillation; E78.5 Hyperlipidemia, unspecified; M06.9 Rheumatoid arthritis, unspecified; M79.7 Fibromyalgia; F41.9 Anxiety disorder, unspecified; F32.A Depression, unspecified
CPT/HCPCS: 80053; 81003; 85025; 99284

== ENCOUNTER 2025-05-30 16:21 | Emergency (ER) | payer MEDICARE, OTHER ==
[~2025-05-30] VITALS: Ht 152.4 cm; Wt 65.8 kg
[~2025-05-30 16:21] MED LIST changes: +DOXYCYCLINE HY100 MG PO; +FLANDERS BUTTOC30 GM TOP; +FLUCONAZOLE100 MG PO; +HYDROCODON-ACE1 EAC9; +METHOTREXA25 MG/1 ML SC; +TIZANIDINE HCL4 M1 PO; +VITAMIN D350 MCG
[2025-05-30] MEDS: HYDROCODONE/APAP 10MG-325MG TAB PO ONE (17:40)
[2025-05-30 19:47] VITALS: PULSE 70; RESP 17; TEMP 98; O2SAT 100
== END 2025-05-30 19:41 | disposition home or self-care (01) ==
LOC: ER 16:26
DX: M25.551 Pain in right hip (principal); M79.672 Pain in left foot; M79.671 Pain in right foot; G89.29 Other chronic pain; W18.11XA Fall from or off toilet without subsequent striking against object, initial encounter; Y92.89 Other specified places as the place of occurrence of the external cause; I10 Essential (primary) hypertension; I48.91 Unspecified atrial fibrillation; E78.5 Hyperlipidemia, unspecified; M06.9 Rheumatoid arthritis, unspecified; M19.09 Primary osteoarthritis, other specified site; K21.9 Gastro-esophageal reflux disease without esophagitis; F41.9 Anxiety disorder, unspecified; F32.A Depression, unspecified
CPT/HCPCS: 99283